=== PATIENT | male | born 1995 | race Caucasian/White ===

== ENCOUNTER 2023-01-18 11:21 | Emergency (ER) | payer OTHER, SELFPAY ==
[2023-01-18 12:27] LABS: SARS-CoV-2 NAA Rapid Test Not Detected (NotDetected)
[2023-01-18] MEDS ORDERED: Amoxicillin/Potassium Clav 875 MG TAB ONE (13:14)
[2023-01-18] MEDS ORDERED: Dexamethasone 10 MG/ML VIAL ONE (13:14)
[2023-01-18] MEDS ORDERED: Ketorolac Tromethamine 30 MG/ML VIAL ONE (13:14)
== END 2023-01-18 13:44 | disposition home or self-care (01) ==
LOC: CSHERS 11:21
DX: J36 Peritonsillar abscess (principal); Z20.822 Contact with and (suspected) exposure to COVID-19
CPT/HCPCS: 71045; 87081; 87430; 96372; J1100; J1885